=== PATIENT | female | born 1975 | race Caucasian/White ===

== ENCOUNTER 2022-05-31 10:51 | Outpatient (CLI) | payer BC | END 2022-05-31 10:52 | disposition home or self-care (01) | LOC: CSHCT 10:51 | PROVIDERS: ATTEND Internal Medicine Gastroenterology | DX: K57.92 Diverticulitis of intestine, part unspecified, without perforation or abscess without bleeding (principal); R19.7 Diarrhea, unspecified; K92.1 Melena; K57.30 Diverticulosis of large intestine without perforation or abscess without bleeding; K59.00 Constipation, unspecified; K44.9 Diaphragmatic hernia without obstruction or gangrene | CPT/HCPCS: 74177 ==